=== PATIENT | female | born 1965 | race African-American/Black ===

== ENCOUNTER → 2025-06-04 13:24 | Outpatient (BNVA) | payer BC, SELFPAY | PROVIDERS: Visit Provider Surgery | DX: Z00.8 Encounter for other general examination (principal) ==

== ENCOUNTER 2025-07-14 08:17 | Outpatient (AMB) | payer BC, SELFPAY ==
--- NOTE | 2025-07-14 13:03 | MHC.OFFVISWM ---
VS Expanded 07/14/25 13:11 Height 5 ft 8 in Weight 297 lb BMI 45.2 Body Fat % 47 Body Fat Mass 139.6 Fat Free Mass 157.4 Visceral Fat Rating 17 Body Water % 37.6 Body Water Mass 111.8 Intake Visit Reasons: [employer] [facility] BMI 45.2 Allergies morphine Allergy (Mild, Verified 07/14/25 13:04) Vomiting Medication List - Last Reconciled 07/14/25 by Alexander Roberts MD aspirin 81 mg PO .prn multivitamin 1 tab PO DAILY [vitamin b12 PO] HPI HPI [employer] [facility] BMI 45.2: Details: Start time: 1.01pm, End time: 1.46pm ?I spent 40 minutes speaking with the patient on the phone plus an additional 5 minutes reviewing and updating records for a total of 45 minutes HPI Comments Details: Previous weight loss efforts: self diets and exercise, Keto diet Wakes up: 6am-7.30am, Sleeps: 12am Breakfast: skips Lunch: 2pm (meat and eggs) Dinner: 7pm (meat and vegetables) Snacks: 4pm (cucumbers, pork skin) Exercise: none Beverages: Coffee (2 cups/d with splenda and cream), Tea: none, Soda: none, Juice: none, ETOH: none PFSH Medical History (Updated 07/14/25 @ 13:06 by Alexander Roberts MD) DJD (degenerative joint disease) Morbid obesity Surgical History (Updated 06/04/25 @ 13:37 by Narcisa Cool CMA) Hx of cholecystectomy Family History (Updated 06/04/25 @ 13:38 by Narcisa Cool CMA) Mother Diabetes Father Lung cancer Heart problem Son Allergies Social History (Updated 06/04/25 @ 13:38 by Narcisa Cool CMA) Alcohol intake: never Patient Tobacco Use Status: Never used Tobacco Telehealth Telehealth Telehealth Platform: Telephone Location of provider rendering services: practice address Location of patient: address on file Patient Identification confirmed using: Name, : Yes Telehealth method: voice only Patient verbally consented to treatment: Yes Patient verbally consented to billing insurance company: Yes Patient informed of any privacy concerns related to visit: Yes Minutes spent on Phone/Video with Pt.: 45 Assessment & Plan Assessment & Plan (1) Morbid obesity: Code(s): E66.01 - Morbid (severe) obesity due to excess calories Category: Medical Plan: 1.?Nutritional counseling. Start with one premade PREMIER protein (buy at [employer] or [employer]) shake (8oz of Premier and NOT the whole bottle) at 8am-10am, one protein bar (Fit Crunch protein bar, buy at [employer], or [employer]) at 11am-1pm, another premade PREMIER protein shake (8oz of Premier and NOT the whole bottle) at 2pm-4pm, dinner at 5pm (10 forks of protein and 10 forks of salad/vegetables), another two more Fit Crunch protein bars after dinner at 7pm-9pm and 10pm to midnight So you do 2 protein shakes, 3 protein bars and one meal per day. Meal to include lean meat (beef, fish, pork, turkey, chicken), or peruvian yogurt, or egg whites, or beans with a salad with olive oil and fruits (berries, pears, apples, kiwi). Avoid salt, breads, potatoes, rice, pasta, desserts. 3. Each shake would be drunk slowly, like coffee in a period of 2 hours. 4. Cut each bar in 4 pieces and eat each piece in 30min ?to make each bar last 2 hours. 5. I emphasized the importance of measuring accurately the food portion and measure it when serving the food in plate 6. The meal portions include 10 full-size forks of meat and 10 full-size forks of salad. You always eat the meat portion but you can replace up to 5 forks for salad/vegetables with rice, potatoes or pasta, or a fruit ?if you like. The less you do it the better weight loss will be. 7. One full-size fork is what it can be scooped on the fork without falling aside and not what can be bit with the fork. Use regular forks like those you find in a typical restaurant. 8.? Please buy the body composition scale we discussed and send me weight measurements as soon as possible and then once a week. Always include your diet and exercise plan. 9. Start walking outside daily, tracking calories with a goal of 300 calories per day, daily. Goal is to burn 2000 calories per week on exercise, which means either 300 calories daily, or 400 calories 5 days per week, or 500 calories 4 days per week, or 650 calories 3 days per week. 10. The best choice would be to purchase a stationary bike, elliptical or treadmill at home that can track calories. If you get one, please start stationary bike at a resistance level of 0.0 Increase level by 1.0 every 3 min to a max level of 6.0. Stay at this level for 3 min and then return to level 4.0 and repeat same steps until 300 calories are burned. Goal is to burn 2000 calories per week on exercise 11. Goal is to lose at least 1.5-2lbs per week 12. Goal to lose at least 10% of your weight, which is about 30lbs. Minimum weight goal: 267lbs 13. Please follow the diet plan exactly without any change. If you don't like something about the plan or you feel hungry you need to communicate with me so I can help you revise the plan. You should not change the plan yourself.
[2025-07-14 13:11] VITALS: BMI 45.2
== END 2025-07-14 13:47 | disposition home or self-care (01) ==
LOC: HO.HBS 08:17
PROVIDERS: Visit Provider Surgery
DX: E66.01 Morbid (severe) obesity due to excess calories (principal); Z68.45 Body mass index [BMI] 70 or greater, adult
CPT/HCPCS: 99204